=== PATIENT | male | born 1970 | race Caucasian/White ===

== ENCOUNTER 2019-04-16 11:28 | Emergency (ER) | payer BC ==
--- NOTE | 2019-04-16 12:32 | UC ---
Dental HPI - HPI Summary HPI Summary: 48-year-old male presents with complaints of 2 day history of left upper dental pain. States he has multiple teeth and poor disrepair. No dental appointment at present. Denies fever, chills, facial swelling, dental drainage, or trismus. - History of Current Complaint Chief Complaint: UCDentalProblem Stated Complaint: TOOTH PAIN Time Seen by Provider: 04/16/19 12:24 Hx Obtained From: Patient Pain Intensity: 2 - Allergies/Home Medications Allergies/Adverse Reactions: Allergies Allergy/AdvReac Type Severity Reaction Status Date / Time No Known Allergies Allergy Verified 04/16/19 12:21 PMH/Surg Hx/FS Hx/Imm Hx Previously Healthy: Yes - Denies significant PMH - Surgical History Surgical History: None - Family History Known Family History: Positive: Non-Contributory - Social History Occupation: Employed Full-time Lives: With Family Alcohol Use: Occasionally Substance Use Type: None Smoking Status (MU): Heavy Every Day Tobacco Smoker Amount Used/How Often: 1 PPD Review of Systems All Other Systems Reviewed And Are Negative: Yes Constitutional: Negative: Fever, Chills Skin: Positive: Negative ENT: Positive: Dental Pain. Negative: Sore Throat, Nasal Discharge, Sinus Congestion, Sinus Pain/Tenderness Respiratory: Negative: Shortness Of Breath, Cough Cardiovascular: Positive: Negative Gastrointestinal: Positive: Negative Genitourinary: Positive: Negative Musculoskeletal: Positive: Negative Neurological: Positive: Negative Is Patient Immunocompromised?: No Physical Exam - Summary Physical Exam Summary: GENERAL APPEARANCE: Well developed, well nourished, alert and cooperative, and appears to be in no acute distress. HEAD: No facial swelling. MOUTH/THROAT: Pharynx normal. No tonsilar inflammation, swelling, exudate, or lesions. Uvula midline. Overall poor dentition with multiple missing teeth and teeth with significant caries. Significant dental decay with fracture of the left upper first molar with mild gingival erythema without induration, fluctuance, or drainage. No trismus. NECK: Neck supple, non-tender without lymphadenopathy. CARDIAC: Normal S1 and S2. No S3, S4 or murmurs. Rhythm is regular. There is no peripheral edema, cyanosis or pallor. Extremities are warm and well perfused. Capillary refill is less than 2 seconds. Peripheral pulses intact. LUNGS: Clear to auscultation without rales, rhonchi, wheezing or diminished breath sounds. ABDOMEN: Positive bowel sounds. Soft, nondistended, nontender. No guarding or rebound. No masses or hepatosplenomegally. MUSKULOSKELETAL: ROM intact to all extremities. No joint erythema or tenderness. Normal muscular development. Normal gait. SKIN: Skin normal color, texture and turgor with no lesions or eruptions. Triage Information Reviewed: Yes Vital Signs: Initial Vital Signs Temp 97.4 F 04/16/19 12:21 Pulse 71 04/16/19 12:21 Resp 16 04/16/19 12:21 BP 122/69 04/16/19 12:21 Pulse Ox 99 04/16/19 12:21 Vital Signs Reviewed: Yes Dental Complaint Course/Dx - Course Course Of Treatment: 48-year-old male presents with complaints of 2 day history of left upper dental pain. States he has multiple teeth and poor disrepair. No dental appointment at present. Denies fever, chills, facial swelling, dental drainage, or trismus. Afebrile. Vital signs stable. Patient had no facial swelling, overall poor dentition, significant dental decay with fracture of the left upper first molar with mild gingival erythema without induration, fluctuance, or drainage, an no trismus. Remainder of exam was unremarkable. We'll start him on Augmentin 8 and 75 mg twice a day to treat for likely dental infection. Patient is to use [id number] analgesics as needed for pain. He is to follow-up with the dentist at the next available appointment. Anticipatory guidance warning symptoms reviewed with the patient. Verbalized understanding and agrees with plan of care. - Differential Dx/Diagnosis Differential Diagnosis/Dx: Dental Abscess, Dental Caries, Fractured Tooth, Odontogenic Pain, Peridontic Disease Provider Diagnosis: Pain, dental Discharge ED - Sign-Out/Discharge Documenting (check all that apply): Patient Departure All imaging exams completed and their final reports reviewed: No Studies - Discharge Plan Condition: Stable Disposition: HOME Prescriptions: Amoxicillin/Clavulanate TAB* [Augmentin TAB 875*] 875 mg PO BID 10 Days #20 tab Patient Education Materials: Toothache (ED) Referrals: No Primary Care Phys,NOPCP [Primary Care Provider] - Additional Instructions: Start Augmentin 875 mg twice a day for 10 days. Take with food to avoid upset stomach. Be sure to complete the entire course even if feeling better. Take acetaminophen (Tylenol) or ibuprofen (Advil, Motrin) according to directions as needed for pain. Be sure to rinse your mouth out with a warm salt water solution after every time you eat to remove any debris. Make an appointment with your dentist at next available appointment. Seek immediate medical attention in the emergency room if you develop fever greater than 100.5 F, you are unable to open of close your mouth, are unable to swallow, have difficulty breathing, or any worsening of symptoms. - Billing Disposition and Condition Condition: STABLE Disposition: Home
== END 2019-04-16 12:35 | disposition home or self-care (01) ==
LOC: UCCORT 11:28
DX: K08.89 Other specified disorders of teeth and supporting structures (principal); F17.210 Nicotine dependence, cigarettes, uncomplicated
CPT/HCPCS: 99202; G0463

== ENCOUNTER 2019-07-19 11:20 | Emergency (ER) | payer BC ==
--- NOTE | 2019-07-19 11:27 | UC ---
Dental HPI - HPI Summary HPI Summary: 48yo male presenting with left upper molar pain since yesterday. Patient states this is the same tooth he was seen here for in Mar 2019. States he has been taking ibuprofen but knows he needs antibiotics. Denies drainage and bleeding. Denies fever, chills, n/v, trismus. - History of Current Complaint Stated Complaint: DENTAL CONCERN Hx Obtained From: Patient - Allergies/Home Medications Allergies/Adverse Reactions: Allergies Allergy/AdvReac Type Severity Reaction Status Date / Time No Known Allergies Allergy Verified 07/19/19 11:28 Home Medications: Home Medications Amoxicillin/Clavulanate TAB* [Augmentin TAB 875*] 875 mg PO BID #20 tab [Rx] PMH/Surg Hx/FS Hx/Imm Hx Previously Healthy: Yes - Surgical History Surgical History: None - Family History Known Family History: Positive: Non-Contributory - Social History Alcohol Use: Occasionally Substance Use Type: None Smoking Status (MU): Heavy Every Day Tobacco Smoker Amount Used/How Often: 1 PPD Review of Systems All Other Systems Reviewed And Are Negative: Yes Constitutional: Positive: Negative Skin: Positive: Negative ENT: Positive: Dental Pain - left upper molar Respiratory: Positive: Negative Cardiovascular: Positive: Negative Gastrointestinal: Positive: Negative Musculoskeletal: Positive: Negative Neurological/Mental Status: Positive: Negative Physical Exam - Summary Physical Exam Summary: Vital Signs Reviewed: Yes A+Ox3, no distress, no distress Eyes: Conjunctiva Clear ENT: Hearing grossly normal, moist, uvula midline, no exudate, no erythema Dental: overall poor dentition, caries throughout teeth, multiple missing teeth , left upper first molar fractured with mild gingival erythema, no drainage, no bleeding, no fluctuance, no TTP Neck: Positive: Supple, no lymphadenopathy Respiratory: Positive: No respiratory distress, No accessory muscle use + CTA throughout no w/r Cardiovascular: RRR nl s1, s2 no m/r Musculoskeletal Exam: MARY x 4 without difficulty Neurological: Positive: Alert Psychological: Positive: age appropriate behavior Skin: Positive: no rash, no ecchymosis Vital Signs: Vital Signs (72 hours) 07/19/19 11:28 Temperature 98.1 F Pulse Rate 90 Respiratory 16 Rate Blood Pressure 143/75 (mmHg) O2 Sat by Pulse 98 Oximetry Dental Complaint Course/Dx - Course Course Of Treatment: I treated patient with augmentin for dental infection. Instructed to continue with salt water gargles and otc analgesics. Instructed to return or go to ED with any new or worsening symptoms. Patient voiced understanding and agreed with treatment plan. - Differential Dx/Diagnosis Provider Diagnosis: Infected dental caries Discharge ED - Sign-Out/Discharge Documenting (check all that apply): Patient Departure All imaging exams completed and their final reports reviewed: No Studies - Discharge Plan Condition: Stable Disposition: HOME Prescriptions: Amoxicillin/Clavulanate TAB* [Augmentin TAB 875*] 875 mg PO BID #20 tab Patient Education Materials: Toothache (ED) Referrals: No Primary Care Phys,NOPCP [Primary Care Provider] - Additional Instructions: As discussed, take Augmentin as prescribed for your dental infection. Do not stop taking the antibiotic even if you start feeling better. Perform salt water gargles 2-3 times daily. Continue with ibuprofen and tylenol as directed for pain and fever relief. Go to the emergency room if you experience fever greater than 100, severe pain, nausea, or vomiting. - Billing Disposition and Condition Condition: STABLE Disposition: Home
[2019-07-19 11:30] VITALS: BP 143/75
== END 2019-07-19 11:56 | disposition home or self-care (01) ==
LOC: UCCORT 11:20
DX: K02.9 Dental caries, unspecified (principal); F17.200 Nicotine dependence, unspecified, uncomplicated
CPT/HCPCS: 99212; G0463